=== PATIENT | female | born 1975 | race Caucasian/White ===

== ENCOUNTER 2017-02-16 13:09 | Emergency (ER) | payer MEDICAID ==
[~2017-02-16] VITALS: Ht 157.5 cm; Wt 59.1 kg
[~2017-02-16 13:09] MED LIST: ATEN25TA PO; ESTR1GEL PO; LORA10TA72 PO; ONDA4TAB7 PO; SUMA100T3 PO; [UNRECOGNIZED DRUG - OTHER]
[2017-02-16] MEDS ORDERED: SODIUM CHLORIDE FLUSH 10ML SYR IVF ONE (14:00)
[2017-02-16] MEDS ORDERED: GLUCAGON 1 MG IVPush ONE (14:00)
[2017-02-16] MEDS ORDERED: GLUCAGON 1 MG ONE (14:01)
[2017-02-16] MEDS ORDERED: MORPHINE SULFATE 4 MG/ML, 1ML ONE ×2 (14:47→16:05)
[2017-02-16] MEDS ORDERED: ONDANSETRON 2MG/ML, 2ML ONE (14:47)
[2017-02-16] MEDS: MORPHINE SULFATE 4 MG/ML, 1ML IVPush PRN ×2 (14:52→16:13)
[2017-02-16] MEDS ORDERED: OMEP20TA62 PO (14:55)
[2017-02-16] MEDS ORDERED: TRAM50TA2 PO (14:55)
[2017-02-16] MEDS ORDERED: CETI10CA PO (14:55)
[2017-02-16] MEDS ORDERED: ONDANSETRON 2MG/ML, 2ML IVPush ONE (15:00)
[2017-02-16] MEDS ORDERED: PROPOFOL 100 ML IV ONE (16:39)
[2017-02-16 18:40] VITALS: BP 113/67
== END 2017-02-16 19:16 | disposition home or self-care (01) ==
LOC: ED 15:44
DX: T18.128A Food in esophagus causing other injury, initial encounter (principal); X58.XXXA Exposure to other specified factors, initial encounter; Y93.89 Activity, other specified; Y92.89 Other specified places as the place of occurrence of the external cause; Y99.9 Unspecified external cause status
CPT/HCPCS: 43247; 96374; 96375; 96376; 99152; 99285; J1610; J2405

== ENCOUNTER 2018-08-16 15:17 | Emergency (ER) | payer MEDICAID ==
[~2018-08-16] VITALS: Ht 157.5 cm; Wt 57.1 kg
[~2018-08-16 15:17] MED LIST changes: +CETI10CA PO; +OMEP20TA62 PO; +TRAM50TA2 PO
[2018-08-16 15:22] VITALS: BP 126/83
[2018-08-16] MEDS ORDERED: GLUCAGON 1 MG IVPush ONE (15:30)
[2018-08-16] MEDS ORDERED: SODIUM CHLORIDE FLUSH 10ML SYR IVF ONE (15:30)
[2018-08-16] MEDS ORDERED: PROPOFOL 10 MG/ML, 20ML IVP ONE (16:00)
[2018-08-16] MEDS ORDERED: PROPOFOL 10 MG/ML, 20ML ONE (16:25)
== END 2018-08-16 19:54 ==
LOC: ED 16:40
DX: T18.128A Food in esophagus causing other injury, initial encounter (principal); K20.0 Eosinophilic esophagitis; X58.XXXA Exposure to other specified factors, initial encounter; Y93.9 Activity, unspecified; Y92.89 Other specified places as the place of occurrence of the external cause; Y99.8 Other external cause status
CPT/HCPCS: 99285

== ENCOUNTER 2019-01-10 20:35 | Emergency (ER) | payer MEDICAID, OTHER ==
[~2019-01-10] VITALS: Ht 157.5 cm; Wt 55.7 kg
--- NOTE | 2019-01-10 21:01 | NUR ---
43 Y/O FEMALE PRESENTS TO THE ER AFTER GETTING A PIECE OF CHICKEN LODGED IN HER THROAT. PT UNABLE TO SWALLOW FLUIDS. PT HAS ATTEMPTED VOMITING WITHOUT SUCCESS. HISTORY OF THIS HAPPENING FREQUENTLY. AIRWAY PATENT.
--- NOTE | 2019-01-10 21:05 | NUR ---
Just spoke with Lorenzo from [facility] and he states that he will come in [place]
--- NOTE | 2019-01-10 21:19 | NUR ---
Note yarelis in EDM - 01/10/19 at 2223 by MARK PT AWAKE AND ALERT. AT BEDSIDE. VITALS STABLE. WARM BLANKETS PROVIDED.
[2019-01-10] MEDS ORDERED: PROPOFOL 10 MG/ML, 20ML IVPush ONE (21:30)
[2019-01-10] MEDS ORDERED: PROPOFOL 10 MG/ML, 20ML ONE ×2 (21:34→21:41)
--- NOTE | 2019-01-10 21:40 | NUR ---
GI AT BEDSIDE. CONSENT SIGNED BY PT AND GI DOCTOR. PT PLACED ON O2 VIA NC. ALL MONITROING EQUIPMENT APPLIED. ALL VITALS STABLE.
--- NOTE | 2019-01-10 21:48 | NUR ---
PROCEDURE STARTED. 60MG OF PROPOFOL ADMINISTERED BY DR. ABARCA Addendum: 01/10/19 at 2202 by MARK PROCEDURE STARTED AT 2143. ENDED AT 2147. TOTAL OF 100MG OF PROPOFOL ADMINISTERED BY DR. ABARCA. FOOD REMOVED FROM ESOPHAGUS
--- NOTE | 2019-01-10 22:19 | NUR ---
PT AWAKE AND ALERT. AT BEDSIDE. VITALS STABLE. WARM BLANKETS PROVIDED.
[2019-01-10 22:22] VITALS: BP 116/71
--- NOTE | 2019-01-10 22:51 | NUR ---
PT REMAINS ALERT AND ORIENTED. DENIES ANY COMPLAINTS. AMBULATORY WITH A STEADY GAIT.
--- NOTE | 2019-01-10 22:55 | NUR ---
Patient/Caregiver given discharge instructions and they have confirmed that they understand the instructions. Patient ambulatory with steady gait.
== END 2019-01-10 22:58 | disposition home or self-care (01) ==
LOC: ED 22:45
DX: T18.128A Food in esophagus causing other injury, initial encounter (principal); X58.XXXA Exposure to other specified factors, initial encounter; Y93.89 Activity, other specified; Y92.89 Other specified places as the place of occurrence of the external cause; Y99.8 Other external cause status
CPT/HCPCS: 99152; 99283; 99285

== ENCOUNTER 2019-03-13 11:45 | Emergency (ER) | payer MEDICAID ==
[~2019-03-13] VITALS: Ht 157.5 cm; Wt 55.2 kg
[2019-03-13 12:14] LABS: BASOPHILS # (AUTO) 0.09 x10^3/uL (0-0.1); BASOPHILS % (AUTO) 1 % (0-1); EOSINOPHILS # (AUTO) 0.12 x10^3/uL (0-0.4); EOSINOPHILS % (AUTO) 1 % (1-7); LYMPHOCYTES % (AUTO) 30 % (22-44); MD NO; MEAN CORPUSCULAR HEMOGLOBIN 28.9 pg (27.0-34.8); MEAN CORPUSCULAR HGB CONC 32.3 g/dL (32.4-35.8); MEAN CORPUSCULAR VOLUME 89.6 fL (80-100); MEAN PLATELET VOLUME 10.8 fL (7.4-10.4); MONOCYTES # (AUTO) 0.48 x10^3/uL (0.2-0.8); MONOCYTES % (AUTO) 5 % (2-9); NEUTROPHILS # (AUTO) 5.59 x10^3/uL (1.8-6.8); NEUTROPHILS % (AUTO) 62 % (42-75); PLATELET COUNT 183 x10^3/uL (130-400); RED BLOOD COUNT 4.67 x10^6/uL (3.82-5.3); RED CELL DISTRIBUTION WIDTH 13.2 % (9.6-15.2)
[2019-03-13 12:23] LABS: ANION GAP 5 mmol/L (5-15); CALCIUM 8.8 mg/dL (8.5-10.1); CHLORIDE 107 mmol/L (98-107); CREATININE 0.94 mg/dL (0.55-1.02)
--- NOTE | 2019-03-13 12:27 | NUR ---
FROM LOBBY TO ROOM AT THIS TIME
[2019-03-13] MEDS ORDERED: ONDANSETRON ODT 4 MG PO ONE (13:00)
--- NOTE | 2019-03-13 13:05 | NUR ---
PT. IS A & O X 4 WITH C/O RIGHT FLANK PAIN AND PAINFUL URINATION THAT STARTED TODAY. PT. WAS MEDICATED FOR PAIN AND NAUSEA ORDRED. UA WAS SENT. PT. REMAINS PINK, WARM AND DRY. LUNGS ARE CTA. MM ARE PINK AND MOIST WITH PULSES +2 THROUGHOUT.
[2019-03-13] MEDS ORDERED: ONDANSETRON ODT 4 MG ONE (13:12)
[2019-03-13] MEDS ORDERED: KETOROLAC 30 MG/1 ML ONE (13:12)
[2019-03-13 13:20] LABS: MICROSCOPIC AUTO
[2019-03-13] MEDS ORDERED: PHENAZOPYRIDINE 200 MG TABLET ONE (13:27)
[2019-03-13] MEDS ORDERED: KETOROLAC 30 MG/1 ML IM ONE (13:30)
[2019-03-13] MEDS ORDERED: PHENAZOPYRIDINE 200 MG TABLET PO ONE (13:30)
[2019-03-13 13:32] LABS: CULTURE INDICATED? YES
--- NOTE | 2019-03-13 13:35 | NUR ---
PT. WAS MEDICATED FOR PAINFUL URINATION ORDERED. VSS. PT. IS RESTING AT THIS TIME.
[2019-03-13 15:04] VITALS: BP 106/65
--- NOTE | 2019-03-13 15:04 | NUR ---
PT. WAS GIVEN DISCHARGE INSTRUCTIONS AND SCRIPTS WITH UNDERSTANDING VERBALIZED ALONG WITH WILLINGNESS TO COMPLY. PT. WAS AMBULATORY TO THE DISCHARGE DESK. VSS. GAIT IS STEADY.
== END 2019-03-13 15:07 | disposition home or self-care (01) ==
LOC: ED 15:05
DX: N30.01 Acute cystitis with hematuria (principal); G43.909 Migraine, unspecified, not intractable, without status migrainosus
CPT/HCPCS: 36415; 74018; 76770; 80048; 81001; 82040; 85025; 87077; 87086; 96372; 99284; J1885; Q0162; 87186